=== PATIENT | female | born 1995 | race Asian ===

== ENCOUNTER 2017-07-26 11:49 | Inpatient (IN) | payer SELFPAY ==
[2017-07-26 12:31] LABS: #Basophils 0.1 thou/uL (0.0-0.2); #Eosinphils 0.1 thou/uL (0.0-0.7); #Lymphocytes 1.3 thou/uL (1.20-3.40); #Monocytes 1.4 thou/uL (0.11-0.59); #Neutrophils 10.6 thou/uL (1.40-6.50); %Basophils 0.8 % (0.0-1.0); %Eosinophils 0.5 % (0.0-10.0); %Lymphocytes 9.6 % (21.0-51.0); %Monocytes 10.2 % (0.0-10.0); Hematocrit 38.6 % (36.0-47.0); Mean Platelet Volume 5.9 fL (7.4-10.4); Red Blood Cell (RBC) Count 4.53 mill/uL (4.20-5.40); White Blood Cell (WBC) Count 13.4 thou/uL (4.8-10.8)
[2017-07-26] MEDS ORDERED: Famotidine/PF 20 mg/2ml Vial ONE (12:31)
[2017-07-26] MEDS ORDERED: Lidocaine Viscous Sol 2% 15 ml UD Cup ONE (12:31)
[2017-07-26] MEDS ORDERED: Mag-Al Plus 1200 MG/1200 MG/120 MG/30 ML UDCUP ONE (12:31)
[2017-07-26 12:39] LABS: Anion Gap 15 mmol/L (10-20); BUN (Urea Nitrogen) 8 mg/dL (7.0-18.7); Calc. Creatinine Clearance 0 mL/min (70-130); Calcium 9.8 mg/dL (7.8-10.44); Carbon Dioxide 26 mmol/L (22-29); Chloride 101 mmol/L (98-107); Estimated GFR-MDRD Greater than 90
[2017-07-26] MEDS ORDERED: Piperacillin/Tazobactam 3.375 GM VIAL ONE (14:57)
[2017-07-26] MEDS ORDERED: Sodium Chloride 0.9% 100 ML ONE (14:58)
--- NOTE | 2017-07-26 15:34 | CT ---
CT ABDOMEN AND PELVIS WITH IV AND ORAL CONTRAST: HISTORY: Abdominal pain. FINDINGS: The lung bases are clear. The liver, spleen, left kidney, adrenal glands, and pancreas have a normal CT appearance. Small cysts arise from the right kidney. A small amount of free fluid is present wi thin the dependent portions of the abdomen and pelvis. Reactive-appearing lymph nodes are present throughout the mesentery. Centered within the right lower quadrant at the expected location of the distal appendix is a lobulated peripherally enhancing lesio n with fluid density center. It measures up to 4.4 x 2.9 cm greatest diameters and is surrounded by a small amount of stranding within the adjacent fat. IMPRESSION: Perforated appendix with contained abscess. Reactive adjacent adenopathy. Findings were called to Dr. Rios in the emergency department at 1443 hours. CODE CR POS: [id number]
[2017-07-26] MEDS ORDERED: Ketorolac Tromethamine 30 MG/ML VIAL ONE (15:58)
[2017-07-26] MEDS ORDERED: Dextrose 5% in Water 1,000 ML IV PRN (18:31)
[2017-07-26] MEDS ORDERED: Acetaminophen 325 MG TAB PO PRN (18:31)
[2017-07-26] MEDS ORDERED: Morphine 4 MG/ML VIAL SLOW IVP PRN (18:31)
[2017-07-26] MEDS ORDERED: Dextrose 50% Abboject 50 ML SYRINGE SLOW IVP PRN (18:31)
[2017-07-26] MEDS ORDERED: hydrALAZINE 20 MG/ML VIAL SLOW IVP PRN (18:31)
[2017-07-26] MEDS ORDERED: Promethazine HCl 25 MG/ML VIAL IM PRN (18:31)
[2017-07-26] MEDS ORDERED: Ondansetron HCl/PF 4 MG/2 ML Vial IVP PRN (18:31)
[2017-07-26] MEDS ORDERED: HYDROcodone/Acetaminophen 10/325 mg Tablet PO PRN (18:31)
[2017-07-26] MEDS ORDERED: Morphine 2 mg/2ml in 0.9% NaCl PF SYRINGE SLOW IVP PRN (18:31)
--- NOTE | 2017-07-26 18:41 | HP ---
DATE OF ADMISSION: 07/26/2017 CHIEF COMPLAINT: Right lower quadrant pain. HISTORY OF PRESENT ILLNESS: This is a 21-year-old female, who is a student, who presents with a 2-3 week history of pain in right lower quadrant that was described as mild, became more severe today, no t associated with nausea, vomiting, anorexia, not associated with diarrhea, constipation. She denies chronic abdominal pain. She now presents after being seen by Dr. Corea at the [facility] [place] [facility] where CT scan has revealed appendiceal abscess. The patient's pain now is 6/10, described as sharp, does not radiate. PAST MEDICAL HISTORY: She denies. PAST SURGICAL HISTORY: She denies. MEDICINES TAKEN DAILY: None. ALLERGIES: None. SOCIAL HISTORY: No smoking, alcohol or other drugs. She is a student. REVIEW OF SYSTEMS: Ten-system review of systems is otherwise negative unless described above. PHYSICAL EXAMINATION: VITAL SIGNS: Blood pressure is 110/67, pulse 82, respirations are 16, O2 sat 100%. She is afebrile. HEENT: Sclerae are anicteric. Oropharynx is clear. NECK: No lymphadenopathy. CHEST: Clear. HEART: Regular rate and rhythm. ABDOMEN: Soft, tender in the right lower quadrant with localized guarding. The rest of the abdomen is benign. No abdominal or inguinal hernias. EXTREMITIES: No ischemia or edema to extremities. LABORATORY AND X-RAY FINDINGS: White blood cell count is 13, hemoglobin 13, platelets 212. Sodium 1 38, potassium 3.7, creatinine 0.71. CT scan reveals appendiceal right lower quadrant abscess consist ent with perforated appendicitis. ASSESSMENT: Appendiceal abscess. PLAN: Percutaneous CT guided drainage tomorrow. She will be sent home on p.o. antibiotics likely wi ll not need appendectomy unless this turns out not to be drainable.
[2017-07-26] MEDS: Famotidine 20 MG TAB PO SCH (20:46)
[2017-07-26] MEDS: Sodium Chloride 0.9% 1,000 ML IV SCH (20:46)
[2017-07-26] MEDS: Piperacillin/Tazobactam 3.375 GM in Sodium Chloride 0.9% 100 ML IVPB SCH (20:46)
[2017-07-27] MEDS: Piperacillin/Tazobactam 3.375 GM in Sodium Chloride 0.9% 100 ML IVPB SCH ×4 (02:34→21:06)
[2017-07-27 05:35] LABS: PTT 36.2 SEC (22.9-36.1); Prothrombin Time 16.4 SEC (12.0-14.7)
[2017-07-27] MEDS ORDERED: Sodium Bicarbonate 2.4 MEQ/5 ML ONE (08:24)
[2017-07-27] MEDS ORDERED: Fentanyl 100 MCG/2 ML VIAL ONE ×3 (08:24→13:03)
[2017-07-27] MEDS ORDERED: Midazolam HCl 2 mg/2 ml Vial ONE (08:24)
--- NOTE | 2017-07-27 08:40 | PRG ---
DATE OF SERVICE: 07/27/2017 SUBJECTIVE: Ms. Ryan has no complaints this morning. She is set for percutaneous drainage of right lo wer quadrant abscess. PHYSICAL EXAMINATION: VITAL SIGNS: She is afebrile. Vital signs are stable. ABDOMEN: Remains tender in the right lower quadrant. ASSESSMENT: Perforated appendicitis with abscess. PLAN: Plan is for percutaneous drainage of abscess if possible. Oral antibiotics for 2 weeks. Disc ontinue drain in my office. Likely we will need interval appendectomy. If percutaneous drainage uns uccessful, she will need laparoscopic, possible open appendectomy later on today.
[2017-07-27] MEDS: Famotidine 20 MG TAB PO SCH ×2 (08:43→21:07)
--- NOTE | 2017-07-27 09:13 | CT ---
CT OF PELVIS PERFORMED WITHOUT CONTRST ENHANCEMENT: HISTORY: Patient with appendiceal abscess for percutaneous drainage. COMPARISON: Prior day's study. FINDINGS: On today's examination, the abscess collection is covered by small bowel loops with some increased di stention to the ileum which is draping the small bowel over the abscess collection. There is no aven ue to percutaneously drain this collection at this time. There is some moderate ileocolic lymphadeno aleisha present. There is some free fluid noted within the pelvis. IMPRESSION: No access due to overlying draping small bowel. The appendiceal abscess collection is not able to be accessed percutaneously. Findings discussed with Dr. Polanco. CODE CR POS: [facility]
--- NOTE | 2017-07-27 09:40 | PDOC.EVN ---
Event Note - Event Note Event Note: Dr. Manning attempted drainage by CT guidance but unable to secondary to bowel now anterior to the abscess. She will need laparoscopic drainage, appendectomy. Risks, benefits, alternative discussed. Surgery later today.
[2017-07-27 10:27] VITALS: BMI 20.5
[2017-07-27] MEDS ORDERED: Bupivacaine/Epinephrine 0.25% 30 ML VIAL ONE (10:51)
[2017-07-27] MEDS ORDERED: Sodium Chloride 0.9% 20 ML ONE (10:53)
[2017-07-27] MEDS ORDERED: Promethazine HCl 25 MG/ML VIAL SLOW IVP PRN (11:53)
[2017-07-27] MEDS ORDERED: HYDROmorphone 2 MG/ML VIAL SLOW IVP PRN (11:53)
[2017-07-27] MEDS ORDERED: Ondansetron HCl/PF 4 MG/2 ML Vial IVP PRN ×2 (11:53→13:43)
[2017-07-27] MEDS ORDERED: Promethazine HCl 25 MG/ML VIAL IM PRN ×2 (11:53→13:43)
[2017-07-27] MEDS ORDERED: Morphine Sulfate 2 MG/ML SYRINGE SLOW IVP PRN (11:53)
[2017-07-27] MEDS ORDERED: Meperidine HCl/PF 25 MG/ML VIAL SLOW IVP PRN (11:53)
[2017-07-27] MEDS ORDERED: Ondansetron HCl/PF 4 MG/2 ML Vial ONE (12:51)
[2017-07-27] MEDS ORDERED: Dextrose 5% in Water 1,000 ML IV PRN (13:43)
[2017-07-27] MEDS ORDERED: Dextrose 50% Abboject 50 ML SYRINGE SLOW IVP PRN (13:43)
[2017-07-27] MEDS ORDERED: hydrALAZINE 20 MG/ML VIAL SLOW IVP PRN (13:43)
[2017-07-27] MEDS ORDERED: HYDROcodone/Acetaminophen 10/325 mg Tablet PO PRN ×2 (13:43)
[2017-07-27] MEDS ORDERED: Morphine 4 MG/ML VIAL SLOW IVP PRN (14:00)
[2017-07-27] MEDS ORDERED: Ketorolac Tromethamine 30 MG/ML VIAL IVP PRN (14:00)
[2017-07-27] MEDS ORDERED: Morphine 2 mg/2ml in 0.9% NaCl PF SYRINGE IVP PRN (14:00)
[2017-07-27] MEDS: Sodium Chloride 0.9% 1,000 ML IV SCH ×2 (14:47→18:22)
[2017-07-27] MEDS: Famotidine/PF 20 mg/2ml Vial SLOW IVP SCH (21:08)
[2017-07-28] MEDS: Piperacillin/Tazobactam 3.375 GM in Sodium Chloride 0.9% 100 ML IVPB SCH ×2 (02:32→08:58)
[2017-07-28] MEDS: Sodium Chloride 0.9% 1,000 ML IV SCH (04:00)
[2017-07-28] MEDS: Famotidine 20 MG TAB PO SCH (08:58)
[2017-07-28 09:03] VITALS: BP 93/56; TEMP 97.9
[2017-07-28] MEDS: Famotidine/PF 20 mg/2ml Vial SLOW IVP SCH (09:17)
== END 2017-07-28 12:56 | disposition home or self-care (01) | DRG 340 ==
LOC: SCSER 11:49 → SURG A 18:06
PROVIDERS: ADMIT Surgery; ATTEND Surgery
PROC: 0DTJ4ZZ Resection of Appendix, Percutaneous Endoscopic Approach (ICD-10-PCS; principal; 2017-07-27)
DX: K35.3 Acute appendicitis with localized peritonitis (principal)
CPT/HCPCS: 36415; 74177; 76380; 80048; 81025; 85025; 85610; 85730; 96361; 96365; 96375; A4216; J1885; J2250; J2405; J2543; J3010; J7050; S0028